=== PATIENT | female | born 1990 | race Caucasian/White ===

== ENCOUNTER → 2023-08-17 | Outpatient (CLI) | payer OTHER, SELFPAY ==
[2023-08-17 17:31] LABS: Absolute Lymphocyte Count 1.98 X10^3/uL (0.83-4.51); Absolute Neutrophil Count 3.6 X10^3/uL (2.0-7.7); Basophil# 0.06 X10^3/uL; Eosinophils% 1.6 % (0-5); Hematocrit 36.2 % (37-47); Hemoglobin 11.1 g/dL (12.0-15.0); Lymphocyte # 1.98 X10^3/ul (0.83-4.51); Lymphocyte % 31.7 % (19-41); Mean Corp Hgb Conc 30.7 g/dL (32-36); Mean Corpuscular Hgb 26.2 pg (27.0-32.0); Mean Corpuscular Volume 85.6 fL (81-99); Mean Platelet Vol. 11.4 fl (6.2-12.0); Monocyte# 0.48 X10^3/uL; Monocyte% 7.7 % (0-10); NRBC Flagged by Analyzer 0 % (0-5); Neutrophil # 3.61 X10^3/uL (2.7-7.7); Neutrophil % 57.8 % (47-70); Platelet Count 238 K/mm3 (150-450); RBC Distribution Width CV 15.2 % (11.6-14.6); RBC Distribution Width SD 46.9 fl (35.1-43.9); Red Blood Count 4.23 M/mm3 (4.2-5.4); White Blood Count 6.2 K/mm3 (4.4-11.0)
[2023-08-17 18:19] LABS: ALB/GLOB Ratio 1.1 RATIO (0.9-2.4); AST(SGOT) 20 U/L (15-37); Alanine Aminotransfer ALT/SGPT 22 U/L (13-56); Albumin, Serum 4.1 g/dL (3.2-5.0); Alkaline Phosphatase 51 U/L (45-117); Anion Gap 7 (5-15); BUN 12 mg/dL (7-18); BUN/Creat Ratio 14.2 RATIO (10-20); Calcium,Total 9.4 mg/dL (8.5-10.1); Chloride 103 mmol/L (98-107); Creatinine, Serum 0.85 mg/dL (0.55-1.02); EST Glomerular Filtration Rate 83 mL/min (>60); Est Glom Filt Rate - Afr Amer 101 mL/min (>60); Globulin 3.7 g/dL (2.2-4.2); Glucose 90 mg/dL (74-106); Protein, Total 7.8 g/dL (6.4-8.2); Sodium Level 136 mmol/L (136-145); T4 Free Direct 0.89 ng/dL (0.76-1.46); Thyroid Stim Hormone (TSH) 5.47 uIU/mL (0.358-3.74)
== END | disposition home or self-care (01) ==
PROVIDERS: PCP Family Medicine; Referring Provider Nurse Practitioner Family; Visit Provider Nurse Practitioner Family
DX: R53.83 Other fatigue (principal)
CPT/HCPCS: 36415; 80053; 84439; 84443; 85025

== ENCOUNTER → 2023-10-02 | Outpatient (CLI) | payer OTHER, SELFPAY ==
--- NOTE | 2023-10-02 14:16 | US_ITS ---
INDICATION: history of thyroid nodules EXAMINATION: Ultrasound US Thyroid (eg thyroid, parathyroid, parotid) TECHNIQUE: Banda scale and color doppler imaging was performed of the thyroid gland. COMPARISON: FINDINGS: RIGHT THYROID LOBE: There is a solid 5 x 6 x 6 mm mid thyroid posterior nodule.. Heterogeneous echotexture with normal vascularity. [No thyroid nodules are present. LEFT THYROID LOBE: 5.3 x 1.7 x 1.7 cm. Heterogeneous echotexture with normal vascularity. [There is a 6 x 5 x 3 mm cyst. ISTHMUS: 1.3 mm. No thyroid nodules are present. Left sided nodes are noted measuring 1 x 0.6 x 0.6 cm and 1.1 x 0.7 x 0.6 cm. The largest measures 6.7 x 1.2 x 0.5 cm. US/Thyroid IMPRESSION: Solid right thyroid nodule. Left thyroid cyst. Heterogeneous echotexture of the thyroid lobes. Left sided adenopathy. No previous studies available comparison. Electronically Signed: Dylan Obando DO at 22:53 EDT ,
[2023-10-02 14:53] LABS: Uric Acid 4.9 mg/dL (2.6-6.0)
[2023-10-04 17:07] LABS: Anti-Centromere B Ab <0.2 AI (0.0-0.9); Anti-Chromatin <0.2 AI (0.0-0.9); Anti-Jo <0.2 AI (0.0-0.9); Anti-Scleroderma-70 AB <0.2 AI (0.0-0.9); Anti-dsDNA Ab <1 IU/mL (0-9); RNP Ab <0.2 AI (0.0-0.9); SJOGREN'S Anti-SS-A test < 0.2 AI (0.0-0.9); SJOGREN'S Anti-SS-B test < 0.2 AI (0.0-0.9); Smith Ab <0.2 AI (0.0-0.9)
== END | disposition home or self-care (01) ==
PROVIDERS: PCP Family Medicine; Referring Provider Nurse Practitioner Family; Visit Provider Nurse Practitioner Family
DX: M25.50 Pain in unspecified joint (principal); E03.8 Other specified hypothyroidism; E04.1 Nontoxic single thyroid nodule
CPT/HCPCS: 36415; 76536; 84550; 86225; 86235

== ENCOUNTER → 2023-11-03 | Outpatient (CLI) | payer OTHER, SELFPAY ==
--- NOTE | 2023-11-03 16:25 | EMB_PTH ---
PATIENT: CONI MENDOZA [id number] AGE/SX: 33/F ROOM: RE11/03/[address]: Dr. Joanna Hilliard DO : 1990 BED: DIS: 11/03/2023 SPEC #: [id number] RECD: 11/03/23 17:05 STATUS: LIZBETH LESTER #: [id number] SUMEET: 11/03/23 16:[address]: Joanna Hilliard DEPT: SURGICAL PATHOLOGY RECD BY: Lacey Leon ENTERED: 11/06/23 10:39 SP TYPE: ENDOM BX/C OTHR DR: Melissa Mcdonald PA-C Tissues: Endometrium, NOS Procedures: Surgery Specimen Level IV HEADER OPERATION: Endometrial biopsy PRE-OP DIAGNOSIS: Metrorrhagia TISSUE SUBMITTED: Endometrial lining MICROSCOPIC DIAGNOSIS Endometrium, biopsy: Secretory endometrium. AM 11/07/2023 MICROSCOPIC DESCRIPTION Slides are reviewed. GROSS DESCRIPTION Received is one container labeled with the patient's name and not further designated. The specimen consists of multiple irregular fragments of pink soft tissue that in aggregate measure 2.0 x 1.0 x 0.1 cm. The specimen is totally submitted in one cassette. 11/06/2023 TC:5 CPT:51221
[2023-11-08 14:10] LABS: HPV APTIMA, High Risk Negative (Negative)
== END | disposition home or self-care (01) ==
PROVIDERS: PCP Family Medicine; Referring Provider Obstetrics & Gynecology; Visit Provider Obstetrics & Gynecology
DX: Z12.4 Encounter for screening for malignant neoplasm of cervix (principal); N92.1 Excessive and frequent menstruation with irregular cycle
CPT/HCPCS: 87624; 88175; 88305; G0145

== ENCOUNTER → 2023-12-22 | Outpatient (CLI) | payer OTHER, SELFPAY ==
[2023-12-22 17:56] LABS: Hematocrit 38.8 % (37-47); Hemoglobin 12.9 g/dL (12.0-15.0); Mean Corp Hgb Conc 33.2 g/dL (32-36); Mean Corpuscular Hgb 30.2 pg (27.0-32.0); Mean Corpuscular Volume 90.9 fL (81-99); Mean Platelet Vol. 11.5 fl (6.2-12.0); Platelet Count 234 K/mm3 (150-450); RBC Distribution Width CV 12.8 % (11.6-14.6); RBC Distribution Width SD 41.8 fl (35.1-43.9); Red Blood Count 4.27 M/mm3 (4.2-5.4); White Blood Count 5.9 K/mm3 (4.4-11.0)
== END | disposition home or self-care (01) ==
LOC: BWCLAB 16:07
PROVIDERS: Anesthesiology; PCP Family Medicine; Referring Provider Obstetrics & Gynecology; Visit Provider Obstetrics & Gynecology
DX: Z01.818 Encounter for other preprocedural examination (principal)
CPT/HCPCS: 36415; 83735; 84443; 85027; 86850; 86900; 86901

== ENCOUNTER 2024-01-02 08:05 | Day surgery (SDC) | payer OTHER, SELFPAY ==
[2024-01-02] VITALS (12 sets, daily range): BP systolic 109–131; BP diastolic 68–82; PULSE 69–90; RESP 12–18; TEMP 35.8–37.2; O2SAT 98–100; BMI 34.2
[2024-01-02 08:41] LABS: Internal QC Validated? YES +Cl - CLEAR BKGD; Pregnancy, Urine Negative Negative
[2024-01-02] MEDS: Magnesium 1 GM over 15 mins IV (08:45)
[2024-01-02] MEDS: Lactated Ringers 1,000 ML 40 ML IV ×2 (09:00→12:53)
[2024-01-02] MEDS: Celecoxib 200 MG Capsule 400 MG PO (09:04)
[2024-01-02] MEDS: dexAMETHasone 4 MG/ML Vial 8 MG IV (09:05)
[2024-01-02] MEDS: Phenazopyridine 95 MG Tablet 190 MG PO (09:05)
[2024-01-02] MEDS: Acetaminophen 500 MG Tablet 1000 MG PO (09:07)
[2024-01-02] MEDS: Gabapentin 600 MG Tablet PO (09:07)
--- NOTE | 2024-01-02 09:14 | PCM.HP.BLA ---
History and Physical Date of Admission: 01/02/24 H&P Vital Signs 11/03/2415:11 12/21/2414:46 12/21/2414:47 Height 5 ft 11 in 5 ft 11 in 5 ft 11 in Weight: 246 lb 2 oz 246 lb 8 oz BMI 34.3 34.3 BP 123/80 H 125/82 H Intake Visit Reasons: TRHBS cysto [employer] Lease Pumper Required: No Is patient in pain?: No Allergies Sulfa (Sulfonamide Antibiotics) Allergy (Severe, Verified 12/22/23 15:47) Hivessulfabenzamide Allergy (Verified 12/22/23 15:47) Other Medications ?Medication ?Instructions ?Recorded ?Confirmed ?Type biotin 5,000 mcg disintegrating 10,000 mcg PO DAILY 06/08/20 12/22/23 History tablet multivitamin (Daily Multi-Vitamin 1 tab PO DAILY 06/08/20 12/22/23 History tablet) alprazolam 0.5 mg tablet (Xanax) 0.5 mg PO QHS PRN anxiety 08/17/23 12/22/23 History cholecalciferol (vitamin D3) 50 50 mcg PO DAILY 08/17/23 12/22/23 History mcg (2,000 unit) capsule levothyroxine 13 mcg capsule 13 mcg PO DAILY #30 caps 10/02/23 12/22/23 Rx ferrous sulfate 325 mg (65 mg 325 mg PO DAILY 12/19/23 12/22/23 History iron) tablet (FeroSul) magnesium glycinate 100 mg (as 200 mg PO DAILY 12/19/23 12/22/23 History glycinate) tablet (Mag Glycinate) Post menopausal: No Patient : No : No PFSH Medical History (Updated 12/19/23 @ 09:18 by Lin Garner) Wears contact lenses Wears glasses MRSA infection History of steroid therapy Thyroid disease Back pain Former smoker History of echocardiogram History of stress test Contraceptive management Surgical History (Updated 12/19/23 @ 09:18 by Lni Garner) Hx of tonsillectomy History of gastric bypass Family History Father HypertensionMother Hypertension Social History current occupational status: employed current occupation: [employer] Smoking Status: Former smoker alcohol intake: current alcohol intake frequency: a few times a month substance use type: does not use seatbelt use: always do you feel safe at home: Yes additional social history: Single HPI TRHBS cysto Details: CONI MENDOZA is a 33 year old G0 who presents for a preop exam for hysterectomy due to heavy periods. She has tried ocps for several years but this caused symptoms of rage. She tried nuvaring and it kept falling out so she questioned the effectiveness of this. she also tried a mirena IUD and this caused bleeding every day for a year and it was removed. Recently she was found to have slightly high tsh levels. She started on thyroid medication and is going to have the level rechecked in a month. She stopped taking it however because it was making her feel too tired. She was given the 25mg dose of levothyroxine. She is due for a pap and emb. Ultrasound at [facility] showed a 9.5 x 4.5 x 5.2 cm uterus with a a6.7mm endometrium and normal appearing ovaries. She has a history of gastric bypass and can not take motrin on a regular basis. Her endometrial biopsy was benign. most recent pap was benign. History 1 Elective abortions 1 Hx Para Spontaneous abortions Hx # Term Pregnancies Ectopic pregnancies Hx # Pregnancies Multiple births # of living children 0 ROS Const ROS Unobtainable: All systems reviewed & are unremarkable except as noted in H Resp Resp: Reports system reviewed and no additional complaints, except as documented; Denies cough GI GI: Reports as per HPI Psych Psych: Reports system reviewed and no additional complaints, except as documented Exam Const General: cooperative, healthy appearing, comfortable and no acute distress Resp Effort & Inspection: normal respiratory effort Skin General: no rashes or lesions noted Psych Appearance: grossly normal Speech and Movement: speech and movement normal Coding Level of Care Code Off vis,est,level 4 Diagnoses Subclinical hypothyroidism E03.8 Metrorrhagia N92.1 History of gastric bypass Z98.84 Assessment and Plan Assessment and Plan (1) Subclinical hypothyroidism: Status: Acute (2) Metrorrhagia: Status: Acute (3) History of gastric bypass: Status: Acute Comment: 2018 Plan After discussing the patient's diagnosis and treatment plan options, patient wishes to proceed with surgical management. I have discussed with the patient the risks, benefits, and alternatives of the procedure which include but are not limited to risks of anesthesia, bleeding, infection, possible damage to bowel, bladder, or surrounding vasculature which could lead to additional surgery to evaluate any complications. Patient agrees to procedure and wishes to proceed. ACOG/uptodate references given for additional information regarding procedure. plan is for total robotic hysterectomy. We discussed short course of nsaids to get her through recovery.
--- NOTE | 2024-01-02 09:25 | PCM.DC ---
Discharge Instructions Diet Discharge Diet: No restrictions DC O2, CPAP, BIPAP needs Additional Home O2 Discharge instructions: No Dressing / Incision May resume sexual activity in: 6 weeks Weight Bearing Status: Full weight bearing Dressing / Incision Call your doctor if your incision/area has: Continuous Slow Oozing, Sudden Increased Bleeding, Increased Pain/ Swelling, Increased Redness and Foul Smelling Discharge Call your doctor if you observe: Fever of 101 or Higher, Using more than 1 pad per hour, Shortness of breath, Chest pain and Uncontrolled pain Suture Line Care: Avoid Pulling/Pushing and Avoid Pinching/Bending Remove Dressing in: 1 week (if present) Cleanse incision/area with: Soap & Water and Keep Dressing Clean & Dry Follow Up Care Please Follow Up With: Joanna Hilliard DO When: Call to make an appointment with your doctor for a postop visit in 2 and 6 weeks Test Results: Test results from this visit will be discussed in further detail at your follow-up appointment, if applicable. Discharge Plan Admission Primary Reason for Your Visit: hysterectomy Attending Provider: Joanna Hilliard Primary Care Provider: Melissa Mcdonald Instructions Print Language: Palauan Discharge Orders/Prescriptions Prescriptions: New ibuprofen 800 mg tablet 800 mg PO Q8H PRN (Reason: pain) Qty: 30 0RF oxycodone-acetaminophen [Percocet] 5-325 mg tablet 1 tab PO Q4H PRN (Reason: pain) 7 Days Qty: 30 0RF Rx Instructions: 1-2 tabs q 4 hrs as needed for pain ondansetron 4 mg tablet,disintegrating 4 mg PO Q8H PRN (Reason: nausea and vomiting) Qty: 20 0RF Continued multivitamin [Daily Multi-Vitamin] Tablet 1 tab PO DAILY biotin 5,000 mcg tablet,disintegrating 10,000 mcg PO DAILY alprazolam [Xanax] 0.5 mg tablet 0.5 mg PO QHS PRN (Reason: anxiety) cholecalciferol (vitamin D3) 50 mcg (2,000 unit) capsule 50 mcg PO DAILY levothyroxine 13 mcg capsule 13 mcg PO DAILY Qty: 30 6RF ferrous sulfate [FeroSul] 325 mg (65 mg iron) tablet 325 mg PO DAILY Mag Glycinate 100 mg tablet 200 mg PO DAILY Referrals / Follow Up: [place],Melissa PA, PA-C [Primary Care Provider] - Disposition Disposition (needs filled in before D/C Order can be placed): Home, Self Care
--- NOTE | 2024-01-02 09:37 | PCM.PRE.AN2 ---
ASA Classification* ASA Classification ASA Classification: 2 Assessment & Plan Anesthesia* Anesthesia Assessment Anesthesia Assessment: Discussed sedation and/or anesthesia options, risks, benefits, and alternatives with patient/parents/legal guardian/POA. Questions invited. The patient/parents/legal guardian/POA seems to understand and agrees to proceed with anesthesia plan. Reviewed the physical assessment, medical history, allergy history and patient home medications list prior to surgery/procedure/anesthetic and documented any changes. Performed airway and anesthesia risk assessments. Anesthesia Type Anesthesia Type: General Anesthesia Focused Assessment* Temperature: 97.5 F Pulse Rate: 89 Blood Pressure: 109/75 Respiratory Rate: 18 Pulse Ox: 98 Airway Assessment Mouth opens: >3 cm Mallampati Score: II Focused Labs Anesthesia Preop lab: CBC WBC 5.9 K/mm3 (4.4-11.0) 12/22/23 16:08 RBC 4.27 M/mm3 (4.2-5.4) 12/22/23 16:08 Hgb 12.9 g/dL (12.0-15.0) 12/22/23 16:08 Hct 38.8 % (37-47) 12/22/23 16:08 Plt Count 234 K/mm3 (150-450) 12/22/23 16:08 CHEMISTRY Potassium 4.0 mmol/L (3.5-5.1) 08/17/23 16:48 Sodium 136 mmol/L (136-145) 08/17/23 16:48 Magnesium 2.0 mg/dL (1.6-2.6) 12/22/23 16:08 BUN 12 mg/dL (7-18) 08/17/23 16:48 Creatinine 0.85 mg/dL (0.55-1.02) 08/17/23 16:48 Glucose 90 mg/dL (74-106) 08/17/23 16:48 TSH 2.140 uIU/mL (0.358-3.740) 12/22/23 16:08 COAG Urine Test Negative Negative 01/02/24 08:20 Tst Clinic Negative 11/03/23 16:32 Pre-Assessment Diagnosis/Proposed Procedure Planned Operative Procedure(s): Total Lap Robotic Hysterectomy Zeke Salping, Cystoscopy Anesthesia History Anesthesia History - oracle adf developer: Anesthesia History - oracle adf developer Hx Hospitalization No 12/19/23 09:19 Any Problems With Anesthesia No 12/19/23 09:19 Cholinesterase deficiency No 12/19/23 09:19 You/Your Family Experience No 12/19/23 09:19 fever (hyperthermia) with Relationship Recent Exposure to Contagious No 01/02/24 08:49 Disease Does patient have nerve No 12/19/23 09:19 stimulator Patient instructed to have device shut off --Does patient have Pacemaker No 01/02/24 08:49 or ICD? When Was Last Pacemaker Check QUESTION #4 FULL TEXT: You/Your Family Experience fever (hyperthermia) with Anesthesia Last Oral Intake Last Oral intake: Last Oral Intake NPO since Meds taken in AM with sips of water? Meds patient instructed to take am of surgery PONV PONV - oracle adf developer: PONV - oracle adf developer Female Yes 12/19/23 09:19 HX of Motion Sickness Yes 12/19/23 09:19 HX of N/V After Surgery No 12/19/23 09:19 Non-Smoker Yes 12/19/23 09:19 Duration of Surgery greater Yes 12/19/23 09:19 than 60 minutes Number of Risk Factors 4 12/19/23 09:19 PONV Score Severe Risk 12/19/23 09:19 Height & Weight Height & Weight: Anesthesia: Height & Weight Height 5 ft 11 in 01/02/24 08:49 Weight: 111.4 kg 01/02/24 08:49 Body Mass Index (BMI) 34.2 01/02/24 08:49 Respiratory Assessment Respiratory Assessment - oracle adf developer: Respiratory Tract Infection Hx - oracle adf developer Hx Respiratory Tract Infection Yes: ENDING SINUS INFECTION 12/19/23 09:19 STOP Sleep Apnea STOP Sleep Apnea - oracle adf developer: STOP Sleep Apnea - oracle adf developer Hx Hypertension No 12/19/23 09:19 Hx Sleep Apnea No 12/19/23 09:19 CPAP BIPAP Do you snore loudly (louder No 12/19/23 09:19 than talking or can be heard Do you often feel tired/ No 12/19/23 09:19 fatigued/ sleepy during daytime? Has anyone observed you stop No 12/19/23 09:19 breathing during sleep? STOP Results Negative 12/19/23 09:19 QUESTION #5 FULL TEXT : Do you snore loudly (louder than talking or can be heard through closed doors)? Tobacco Use History Tobacco Use History - oracle adf developer: Tobacco Use History - oracle adf developer Tobacco Use Smoking Status Former smoker 12/19/23 09:19 Hx Tobacco Use No 12/19/23 09:19 Years Smoking Packs Smoked per Day Smoking Cessation Date was Yes - quit smoking within 15 12/19/23 09:19 within the last 15 years years Hx Smoking Cessation Date Hx Smoking Cessation Counseling Hematologic Medial History Hematologic Hx - oracle adf developer: Hematologic Medical Hx - manager new product Hx of Blood Transfusion No 12/19/23 09:19 Hx of Transfusion in last 3 No 12/19/23 09:19 Months Date of Last Transfusion (if within last 3 months) Ever experience any problems No 12/19/23 09:19 with transfusion(s)? Specify any problems Hx of Preganancy in last 3 No 12/19/23 09:19 Months Nurse Filling Out Transfusion VCHRISTIN 12/19/23 09:19 & Questions: Date: 12/19/23 12/19/23 09:19 Time: 09:20 12/19/23 09:19 Patient unable to answer at this time (ie. confused, unrespo /Reproduction History /Reproductive History - oracle adf developer: /Reproductive Hx- oracle adf developer Hx Now No 12/19/23 09:19 Gestational Age (in weeks): EDC: Hx Hx Para Hx Section SAB No 12/22/23 15:47 Active Medications Active Medications: Current Medications Generic Name Dose Route Start Last Admin Trade Name Leiq PRN Reason Stop Dose Admin Acetaminophen 1,000 mg 01/02/24 10:15 01/02/24 09:07 Acetaminophen 500 Mg Tablet PO 01/02/24 10:16 1,000 mg PREOP ONE Administration Celecoxib 400 mg 01/02/24 10:15 01/02/24 09:04 Celecoxib 200 Mg Capsule PO 01/02/24 10:16 400 mg X1 ONE Administration Dexamethasone Sodium Phosphate 8 mg 01/02/24 10:15 01/02/24 09:05 Dexamethasone 4 Mg/Ml Vial IV 01/02/24 10:16 8 mg X1 ONE Administration Gabapentin 600 mg 01/02/24 10:15 01/02/24 09:07 Gabapentin 600 Mg Tablet PO 01/02/24 10:16 600 mg PREOP ONE Administration Lactated Ringer's 1,000 mls @ 40 mls/hr 01/02/24 10:15 01/02/24 09:00 IV 40 mls/hr .Q25H GIA Administration Cefazolin Sodium 2 gm/ N/A 20 mls @ 400 mls/hr 01/02/24 10:15 IV 01/02/24 10:17 PREOP ONE Magnesium Sulfate 1 gm/ 102 mls @ 408 mls/hr 01/02/24 10:15 01/02/24 08:45 Dextrose IV 01/02/24 10:29 408 mls/hr X1 ONE Administration Insulin Human Lispro 0 unit 01/02/24 10:15 Insulin Lispro 100 Unit/Ml Insuln.Pen SC 01/02/24 22:00 Q4H PRN PRN BG >/= 180, SEE PROTOCOL Protocol Ondansetron HCl 4 mg 01/02/24 10:15 Ondansetron 4 Mg/2 Ml Vial IV 01/02/24 10:16 X1 ONE Phenazopyridine HCl 190 mg 01/02/24 10:15 01/02/24 09:05 Phenazopyridine 95 Mg Tablet PO 01/02/24 10:16 190 mg X1 ONE Administration PFSH Medical History Wears contact lenses Wears glasses MRSA infection History of steroid therapy Thyroid disease Back pain Former smoker History of echocardiogram History of stress test Contraceptive management Home Medications ?Medication ?Instructions ?Recorded ?Last Taken ?Type biotin 5,000 mcg disintegrating 10,000 mcg PO DAILY 06/08/20 Unknown History tablet multivitamin (Daily Multi-Vitamin 1 tab PO DAILY 06/08/20 Unknown History tablet) alprazolam 0.5 mg tablet (Xanax) 0.5 mg PO QHS PRN anxiety 08/17/23 Unknown History cholecalciferol (vitamin D3) 50 50 mcg PO DAILY 08/17/23 Unknown History mcg (2,000 unit) capsule levothyroxine 13 mcg capsule 13 mcg PO DAILY #30 caps 10/02/23 01/02/24 Rx ferrous sulfate 325 mg (65 mg 325 mg PO DAILY 12/19/23 Unknown History iron) tablet (FeroSul) magnesium glycinate 100 mg (as 200 mg PO DAILY 12/19/23 Unknown History glycinate) tablet (Mag Glycinate) ibuprofen 800 mg tablet 800 mg PO Q8H PRN pain #30 tabs 01/02/24 Unknown Rx ondansetron 4 mg disintegrating 4 mg PO Q8H PRN nausea and 01/02/24 Unknown Rx tablet vomiting #20 tabs oxycodone-acetaminophen 5 mg-325 1 tab PO Q4H PRN pain 7 days #30 01/02/24 Unknown Rx mg tablet (Percocet) tabs Allergy/AdvReac Type Severity Reaction Status Date / Time Sulfa (Sulfonamide Allergy Severe Hives Verified 01/02/24 08:48 Antibiotics) sulfabenzamide Allergy Other Verified 01/02/24 08:48 Family History Father Hypertension Mother Hypertension Surgical History Hx of tonsillectomy History of gastric bypass Social History current occupational status: employed current occupation: [employer] Smoking Status: Former smoker alcohol intake: current alcohol intake frequency: a few times a month substance use type: does not use seatbelt use: always do you feel safe at home: Yes additional social history: Single Review of Systems (Anesthesia) ROS Narrative System reviewed and no additional complaints, except as documented.
[2024-01-02 09:44] LABS: Bedside Glucose 69 mg/dL (74-106)
[2024-01-02] MEDS: Cefazolin 2 GM in Syringe IV (10:07)
--- NOTE | 2024-01-02 10:15 | HYST_PTH ---
PATIENT: CONI MENDOZA [place]: [facility] [place][id number] AGE/SX: 33/F ROOM: RE01/02/[address]: Dr. Joanna Hilliard DO : 1990 BED: DIS: 01/02/2024 SPEC #: [id number] RECD: 01/02/24 12:21 STATUS: LIZBETH BATISTA #: [id number] SUMEET: 01/02/24 10:[address]: Joanna Hilliard DEPT: SURGICAL PATHOLOGY RECD BY: Lacey Leon ENTERED: 01/02/24 13:20 SP TYPE: HYSTERECT OTHR DR: Melissa Mcdonald PA-C Tissues: Uterus, NOS Procedures: Surgery Specimen Level V HEADER OPERATION: Total laparoscopic robotic hysterectomy bilateral salpingectomy PRE-OP DIAGNOSIS: Metrorrhagia TISSUE SUBMITTED: Uterus, cervix, bilateral fallopian tubes MICROSCOPIC DIAGNOSIS Uterus, hysterectomy: Cervix - Squamous metaplasia and minimal chronic inflammation. Endometrium - Proliferative endometrium. Myometrium - Focal superficial adenomyosis. Right and left fallopian tubes- No pathologic change. AM. 01/03/2024 MICROSCOPIC DESCRIPTION Slides are reviewed. GROSS DESCRIPTION Received in fixative is one container labeled with the patient's name and designated uterus. The specimen consists of a uterus with attached cervix and attached right and left fallopian tubes. The uterus with cervix measures 9.5 x 6.0 x 4.0 cm and weighs 90 gm. The ectocervix is unremarkable. The cervical os is oval in contour. The endocervical canal measures 3.4 cm in length and is grossly unremarkable. The triangular endometrial cavity measures 4.0 x 3.0 cm. The velvety, light el endometrium measures up to 0.2 cm in thickness. The myometrium measures 2.0 cm in average thickness and is free of mass lesions. The right and left fallopian tubes are similar in appearance with average length of 7.0cm and average diameter of 0.6cm. Fertilizer Supervisor sections are submitted as follows: 1 - anterior cervix, 2 - posterior cervix, 3 & 4 - anterior uterine wall, 5 & 6 - posterior uterine wall, 7 - right fallopian tube, 8 - left fallopian tube. / AM: 01/02/2024 TC:5 CPT: 02728
[2024-01-02] MEDS: Bupivacaine 0.25% 30 ML Vial (11:43)
--- NOTE | 2024-01-02 11:44 | OP.PCM_ITS ---
Problems Associated Problem List Diagnoses (1) Metrorrhagia: (2) Endometriosis determined by laparoscopy: Operative Report (Standard) Operative Information Surgery/Procedure Performed: total robotic hysterectomy, bilateral salpingectomy, fulguration of endometriosis Surgeon: Joanna Hilliard Date of Procedure: 01/02/24 Procedure Start Time: 10:33 Procedure Stop Time: 11:50 Pre-Operative Diagnosis: Menorrhagia Post-Operative Diagnosis: menorrhagia, endometriosis Select all DRAINS/GRAFTS/IMPLANTS that apply: None Type of Anesthesia: General Estimated Blood Loss: 25cc Specimen collected: Yes Description of specimen(s) removed: uterus, cervix, fallopian tubes Description of surgery: Findings: 9 cm size uterus, normal appearing ovaries and tubes. Posterior cul-de-sac endometriosis and endometriosis of the left ovary. On exploration of the abdominal cavity the uterus, adnexa, bowel, and liver were found to be normal. Cystoscopy showed no evidence of leaking at approximately 250 cc of normal saline, positive ureteral orifices and jet flow are seen and no suture material was appreciated in the bladder. Specimens removed: Uterus and cervix, Bilateral tubes Reason for surgery: This is a 33-year-old G0, who presented to my office with history of heavy periods and failed conservative thearpy. The planned procedure is for a robotic hysterectomy the risks benefits and alternatives were discussed with the patient the patient had a clear understanding of the procedure and a consent form was signed. Procedure: The patient was placed in the dorsal low lithotomy position and prepped and draped in the normal sterile fashion both abdominally and in the perineum. Her legs were placed in stirrups a Waters catheter was inserted into the urethra without difficulty. A weighted speculum was placed in the vagina and a single- tooth tenaculum was used to grasp the anterior lip of the cervix. An advincula uterine manipulator was inserted through the cervix without complication. It was then tied into place at the 2 and 10:00 locations on the cervix. Gloves were changed and attention was turned towards the abdomen. Approximately 23 cm above the pubic symphysis in the midline, and after Marcaine injection, a 8 mm incision was made. An 8 mm trocar was inserted through the laparoscope, then inserted into the abdomen under direct visualization using the laparoscope. Good abdominal placement was noted and no complications were appreciated. An air seal device was utilized to create pneumoperitoneum. At 12 cm lateral to the midline on the left and right sides 8 mm accessory ports were placed. Next a left upper quadrant 8 mm assignment desk assistant port site was placed. The patient was placed in steep Trendelenburg position. The robot was docked. The hysterectomy was initiated first by taking down the round ligament on each side using the vessel sealer device. The fallopian tubes were grasped and the underlying mesosalpinx cauterized and cut using the vessel sealer. The broad li gament was then and taken down using the vessel sealer device. Next the bladder flap was taken down without complication. This was done using monopolar cautery to the level of the cervical vaginal junction. After the bladder flap was created, uterine vessels were then isolated and cauterized using the vessel sealer device and EndoShears. At this point the uterine vessels were taken down further starting from the ascending branch, dissecting along the edges of the cervix to the level of the cervical vaginal junction with hemostasis appreciated. The cervical vaginal junction was then using monopolar cautery in a circumferential pattern across the superior aspect of the cervix. The specimen was delivered through the vagina and sent to pathology. The remaining vaginal cuff was then closed using a V lock suture. This was performed in a running technique. Excellent hemostasis was obtained and good closure was noted. Irrigation was then performed. All operative sites were noted to be hemostatic. Electrocautery was then used to cauterize endometriotic lesions in the cul-de-sac and left ovary. A cystoscopy was performed with a 70 degree cystoscope through the urethra into the bladder without complication. The bladder was instilled with approximately 250 cc of normal saline. Intraoperative images were made. Ureteral orifices and jets were identified. No suture material was appreciated in the bladder. The bladder was then drained and cystoscope was removed. The abdominal cavity was again examined using the laparoscope after the robot was undocked. All operative sites were noted to be hemostatic. The trochars were removed under direct visualization without complication and pneumoperitoneum was reduced. At this point the skin was then closed using 4-0 Monocryl subcuticular stitch and sealed with surgical glue. The patient tolerated the procedure well sponge lap and needle counts were correct x2 the patient was taken to the recovery room in stable condition. Surgical Findings: endometriosis in the cul-de-sac and left ovary. normal uterus, ovaries, and fallopian tu bes Reading Tutor tower director: Yes Garage Door Opener Installer: Joanna Hilliard Tasks completed by library circulation assistant: Closing, Insert Trochanter and Retracting Additional assignment desk assistant?: No Complications Complications: No Admit VTE Documentation VTE Present on Admission: No VTE Mechan Device Prophylaxis: SCD's VTE Pharm Prophylaxis ordered?: No Multi Select Codes Urinary/Genital Urinary/Genital CPT Codes: 98770 Cystoscopy and 16414 TLH+BS/O <250gr uterus
--- NOTE | 2024-01-02 12:04 | PCM.POST.ANE ---
Anesthesia: Postop Eval I Current Vital Signs Temperature: 96.5 F Pulse Rate: 90 Blood Pressure: 115/72 Respiratory Rate: 16 Pulse Ox: 100 Oxygen Delivery Method: Simple Mask Oxygen Flow Rate (L/min): 6 Assessment Airway patent: Yes Spontaneous unlabored respirations: Yes Mental status: Awake nausea: No Vomiting: No Anesthesia Complication: No Fluid Hydration Crystalloid volume administer (ml): 1,000 Total IV fluid infused: 1,000 Progress Note Anesthesia document: Postop Eval 1 completed: Yes
--- NOTE | 2024-01-02 12:50 | POSTOPAN2_ITS ---
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 Spontaneous unlabored Yes 01/02/24 12:05 MANAGER [email or web address] respirations Mental status Awake 01/02/24 12:05 MANAGER [email or web address] nausea No 01/02/24 12:05 MANAGER [email or web address] Vomiting No 01/02/24 12:05 MANAGER [email or web address] Anesthesia Postop Eval I: Fluid Summary Crystalloid volume administer 1,000 01/02/24 12:05 MANAGER [email or web address] (ml) Colloids volume administered ( ml) Blood Product volume administered (ml) Total IV fluid infused 1,000 01/02/24 12:05 MANAGER [email or web address] Anesthesia Postop Eval I: Summary Notes Anesthesia Complication No 01/02/24 12:05 MANAGER [email or web address] Anesthesia Complication Comment: Post-operative progress note Anesthesia: Postop Eval II Evaluation Mental status: Awake Pain Level: 0 nausea: No Vomiting: No
--- NOTE | 2024-01-02 12:50 | PCM.POSTANE2 ---
Anesthesia Postop Eval I Sum Postop Eval Completion status Anesthesia document: Postop Eval 1 completed: Yes Anesthesia Postop Eval I Summary Anesthesia Postop Eval I Summary: Anesthesia Postop Eval I: Assessment Summary Airway patent Yes 01/02/24 12:05 BLOOM CONVEYOR [email or web address] Spontaneous unlabored Yes 01/02/24 12:05 BLOOM CONVEYOR OPERATOR.[email or web address] respirations Mental status Awake 01/02/24 12:05 BLOOM CONVEYOR [email or web address].HBARR nausea No 01/02/24 12:05 BLOOM CONVEYOR OPERATOR.[email or web address] Vomiting No 01/02/24 12:05 BLOOM CONVEYOR OPERATOR.[email or web address] Anesthesia Postop Eval I: Fluid Summary Crystalloid volume administer 1,000 01/02/24 12:05 BLOOM CONVEYOR [email or web address].[email or web address] (ml) Colloids volume administered ( ml) Blood Product volume administered (ml) Total IV fluid infused 1,000 01/02/24 12:05 BLOOM CONVEYOR [email or web address].[email or web address] Anesthesia Postop Eval I: Summary Notes Anesthesia Complication No 01/02/24 12:05 BLOOM CONVEYOR [email or web address].[email or web address] Anesthesia Complication Comment: Post-operative progress note Anesthesia: Postop Eval II Evaluation Mental status: Awake Pain Level: 0 nausea: No Vomiting: No
[2024-01-02] MEDS: oxyCODONE 5 MG Tablet PO (14:11)
== END 2024-01-02 15:33 | disposition home or self-care (01) ==
LOC: SDC 08:05 → AC 08:06
PROVIDERS: PCP Family Medicine; Referring Provider Obstetrics & Gynecology; Visit Provider Obstetrics & Gynecology
PROC: 0UT90ZZ Resection of Uterus, Open Approach (ICD-10-PCS; CPT 58571; principal; 2024-01-02 09:55)
DX: N80.03 Adenomyosis of the uterus (principal); N92.1 Excessive and frequent menstruation with irregular cycle; Z87.891 Personal history of nicotine dependence; Z79.890 Hormone replacement therapy; E03.8 Other specified hypothyroidism; Z98.84 Bariatric surgery status; N87.9 Dysplasia of cervix uteri, unspecified; N72 Inflammatory disease of cervix uteri; F41.9 Anxiety disorder, unspecified; Z79.899 Other long term (current) drug therapy
CPT/HCPCS: 58571; 00840; 81025; 82962; 88307; J7120; J2405; J3475

== ENCOUNTER → 2024-02-12 | Outpatient (CLI) | payer OTHER, SELFPAY | END | disposition home or self-care (01) | LOC: LABSPEC 16:19 | PROVIDERS: PCP Family Medicine; Referring Provider Obstetrics & Gynecology; Visit Provider Obstetrics & Gynecology | DX: N76.0 Acute vaginitis (principal) | CPT/HCPCS: 87070; 87205 ==

== ENCOUNTER → 2024-04-25 | Outpatient (CLI) | payer OTHER, SELFPAY | END | disposition home or self-care (01) | LOC: BWCLAB 11:52 → LABSPEC 04-26 09:25 | PROVIDERS: PCP Family Medicine; Referring Provider Obstetrics & Gynecology; Visit Provider Obstetrics & Gynecology | DX: N89.8 Other specified noninflammatory disorders of vagina (principal) | CPT/HCPCS: 87070; 87205 ==